=== PATIENT | female | born 1955 | race African-American/Black ===

== ENCOUNTER 2017-08-04 12:05 | Emergency (ER) | payer BC, OTHER ==
[2017-08-04 12:40] LABS: #Basophils 0.1 thou/uL (0.0-0.2); #Eosinphils 0.2 thou/uL (0.0-0.7); #Lymphocytes 1.8 thou/uL (1.20-3.40); #Monocytes 0.3 thou/uL (0.11-0.59); %Basophils 1.6 % (0.0-1.0); %Lymphocytes 34.5 % (21.0-51.0); %Monocytes 5.4 % (0.0-10.0); %Neutrophils 55.5 % (42.0-75.0); Hemoglobin 13.6 g/dL (12.0-16.0); Mean Corpuscular HGB CONC 32.4 g/dL (32.0-36.0); Mean Corpuscular Hemoglobin 28.8 pg (27.0-31.0); Mean Corpuscular Volume 89.1 fl (81.0-99.0); Mean Platelet Volume 8.2 fL (7.4-10.4); Platelet Count 248 thou/uL (130-400); RBC Distribution Width 12.1 % (11.5-14.5); Red Blood Cell (RBC) Count 4.73 mill/uL (4.20-5.40); White Blood Cell (WBC) Count 5.3 thou/uL (4.8-10.8)
[2017-08-04] MEDS ORDERED: ISOVUE-370 76%-LOCM 1 ML ONE (12:48)
[2017-08-04] MEDS ORDERED: Ondansetron PF 4 MG/2 ML Vial ONE (13:05)
[2017-08-04 13:07] LABS: ALT (SGPT) 14 U/L (8-55); AST (SGOT) 37 U/L (5-34); Albumin 3.5 g/dL (3.4-4.8); Alkaline Phosphatase 128 U/L (40-150); Anion Gap 11 mmol/L (10-20); BUN (Urea Nitrogen) 10 mg/dL (9.8-20.1); Calc. Creatinine Clearance 0 mL/min (70-130); Calcium 8.8 mg/dL (7.8-10.44); Carbon Dioxide 27 mmol/L (23-31); Chloride 105 mmol/L (98-107); Estimated GFR-MDRD 65; Globulin 3.3 g/dL (2.4-3.5); Glucose 95 mg/dL (80-115); Potassium 3.3 mmol/L (3.5-5.1); Protein, Total 6.8 g/dL (6.0-8.3); Sodium 140 mmol/L (136-145)
[2017-08-04 13:09] LABS: Troponin I Less than 0.010 ng/mL (< 0.028)
--- NOTE | 2017-08-04 13:30 | RAD ---
PORTABLE CHEST ONE VIEW: 08/04/2017 12:47 p.m. HISTORY: Chest pain. COMPARISON: 08/28/2011 FINDINGS: The heart size is normal. No confluent areas of consolidation, pneumothorax, or pleural effusions ar e seen. IMPRESSION: No radiographic evidence of acute cardiopulmonary process. POS: OFF
--- NOTE | 2017-08-04 13:46 | CT ---
CT ANGIOGRAM THORAX WITH IV CONTRAST AND 3D RECONSTRUCTIONS: Date: 08-04-17 History: Dyspnea. FINDINGS: No filling defects are seen in the pulmonary arteries to suggest a pulmonary embolus. Small vascular calcifications are seen in the coronary arteries. The thoracic aorta is normal in caliber and no obvi ous aortic dissection is appreciated. There is no evidence of lymphadenopathy. Lungs are clear. There is a hiatal hernia. Post-surgical changes are seen in the region of the GE junction. Evidence o f prior cholecystectomy. IMPRESSION: 1. No CT evidence of a pulmonary embolus. 2. Small hiatal hernia and post-surgical changes at the GE junction. POS: ANTONIO
[2017-08-04] MEDS ORDERED: Potassium Chloride 20 MEQ TAB ONE (14:51)
[2017-08-04] MEDS ORDERED: Ketorolac Tromethamine 30 MG/ML VIAL ONE (14:51)
--- NOTE | 2017-08-08 15:34 | EKG ---
Test Reason : Blood Pressure : / mmHG Vent. Rate : 054 BPM Atrial Rate : 054 BPM P-R Int : 146 ms QRS Dur : 074 ms QT Int : 446 ms P-R-T Axes : 023 -16 -34 degrees QTc Int : 422 ms Sinus bradycardia Moderate voltage criteria for LVH, may be normal variant Abnormal ECG Confirmed by DARLING THAO ([id number]), book or script editor IBIS SUAREZ ([id number]) on 08/08/2017 3:33:43 PM Referred By: Confirmed By:DARLING THAO
== END 2017-08-04 16:26 | disposition home or self-care (01) ==
LOC: ERS 12:05
DX: R07.2 Precordial pain (principal); E87.6 Hypokalemia; I10 Essential (primary) hypertension; F41.9 Anxiety disorder, unspecified; G89.29 Other chronic pain
CPT/HCPCS: 71045; 71275; 80053; 82553; 84484; 85025; 85379; 93005; 96361; 96374; 96375; J1885; J2405

== ENCOUNTER 2018-10-25 16:43 | Observation (INO) | payer BC ==
[~2018-10-25 16:43] MED LIST: Iopamidol 370 76% 100 ML VIAL ONE
[2018-10-25] MEDS ORDERED: Nitroglycerin 2% Ointment 1 INCH/1 GM Packet ONE (17:14)
[2018-10-25] MEDS ORDERED: Aspirin Chewable 81 MG TAB ONE (17:14)
[2018-10-25] MEDS ORDERED: Nitroglycerin 0.4 MG TAB (25 Tab Bottle) ONE (17:15)
[2018-10-25 17:27] LABS: #Basophils 0.1 thou/uL (0.0-0.2); #Eosinphils 0.1 thou/uL (0.0-0.7); #Lymphocytes 1.7 thou/uL (1.20-3.40); #Monocytes 0.5 thou/uL (0.11-0.59); #Neutrophils 7.8 thou/uL (1.40-6.50); %Eosinophils 0.6 % (0.0-10.0); %Lymphocytes 16.6 % (21.0-51.0); %Neutrophils 76.7 % (42.0-75.0); Hemoglobin 13.7 g/dL (12.0-16.0); Mean Corpuscular HGB CONC 31.7 g/dL (32.0-36.0); Mean Corpuscular Hemoglobin 28.6 pg (27.0-31.0); Mean Corpuscular Volume 90.4 fL (78.0-98.0); Platelet Count 266 thou/uL (130-400); RBC Distribution Width 13.7 % (11.5-14.5); Red Blood Cell (RBC) Count 4.79 mill/uL (4.20-5.40); White Blood Cell (WBC) Count 10.1 thou/uL (4.8-10.8)
[2018-10-25 17:38] LABS: ALT (SGPT) 17 U/L (8-55); AST (SGOT) 18 U/L (5-34); Albumin 3.7 g/dL (3.4-4.8); Alkaline Phosphatase 100 U/L (40-150); Anion Gap 16 mmol/L (10-20); BUN (Urea Nitrogen) 21 mg/dL (9.8-20.1); Bilirubin, Total 0.5 mg/dL (0.2-1.2); CK (CPK) 60 U/L (29-168); Calc. Creatinine Clearance 0 mL/min (70-130); Calcium 9.5 mg/dL (7.8-10.44); Carbon Dioxide 26 mmol/L (23-31); Chloride 104 mmol/L (98-107); Estimated GFR-MDRD 36; Globulin 3.8 g/dL (2.4-3.5); Glucose 132 mg/dL (80-115); Lipase 30 U/L (8-78); Potassium 3.8 mmol/L (3.5-5.1); Protein, Total 7.5 g/dL (6.0-8.3); Sodium 142 mmol/L (136-145)
--- NOTE | 2018-10-25 19:11 | CT ---
Contrast-enhanced CTA chest. HISTORY: Chest pain. [place] contrast-enhanced CTA of the chest performed. 2-D and 3-D reconstruction im ages performed on an independent 3-D workstation. Surgical wil seen in the gastroesophageal junction. There is some thickening of the distal esopha geal mucosa. This is unchanged since the previous exam from 08/04/2017. No significant evidence of mediastinal hilar or axillary lymphadenopathy is seen. Calcifications seen in the proximal portion of the left anterior descending coronary artery. No evidence of lung parenchymal masses or lesions seen. No evidence of filling defects seen in the pulmonary arteries to suggest pulmonary emboli. IMPRESSION: No evidence of pulmonary emboli.
[2018-10-25 20:30] LABS: Troponin I 0.013 ng/mL (< 0.028)
[2018-10-25 21:28] VITALS: BMI 50.3
[2018-10-25] MEDS ORDERED: Nitroglycerin 2% Ointment 1 INCH/1 GM Packet TOP SCH (21:30)
[2018-10-25 23:25] LABS: Troponin I Less than 0.010 ng/mL (< 0.028)
[2018-10-26] MEDS ORDERED: Nitroglycerin 0.4 MG TAB (25 Tab Bottle) PO PRN (01:46)
[2018-10-26] MEDS ORDERED: Ondansetron PF 4 MG/2 ML Vial IVP PRN (01:46)
[2018-10-26] MEDS ORDERED: Ondansetron ODT 4 MG TAB PO PRN (01:46)
[2018-10-26] MEDS ORDERED: Acetaminophen 500 MG TAB PO PRN (01:46)
[2018-10-26] MEDS ORDERED: hydrALAZINE 20 MG/ML VIAL SLOW IVP PRN (01:46)
--- NOTE | 2018-10-26 03:23 | HP ---
PRIMARY CARE PROVIDER: Mey Guido MD CHIEF COMPLAINT: Chest pain. HISTORY OF PRESENT ILLNESS: This is a 63-year-old female, who presented to [facility] Emergency Department complaining of chest pain, which lasted for approximately 3-1/2 hours starting approximately at 01:30 p.m. on 10/25/2018. The patient was sitting at work when she developed chest pressure and felt like "something was sitting on my chest." The patient rested for several hours without relief of her symptoms, but does state that she takes aspirin 81 mg daily and had taken a dose prior to this episode. The patient states she underwent cardiac catheterization approximately 10 years prior to this evaluation with negative findings. The patient admits to history of coronary artery disease with her mother sustaining a myocardial infarction in her 60s. The patient denied any recent trauma, injury, fever, chills, cough, or congestion. The patient states she has been on her routine chronic medications and has been compliant. The patient did experience some nausea and diaphoresis with the chest pain, but denied any jaw or left arm discomfort. In the emergency room, the patient underwent general evaluation with troponin I negative x1. The patient received transdermal nitroglycerin, intravenous normal saline, sublingual nitroglycerin, and aspirin 324 mg. The patient was referred to the Hospitalist Service for further observation. PAST MEDICAL HISTORY: 1. Hypertension. 2. Deep venous thrombosis, status post treatment. 3. Chronic back pain. 4. Depression. PAST SURGICAL HISTORY: 1. Status post cholecystectomy. 2. Status post hernia repair. 3. Status post gastric stapling. 4. Status post cardiac catheterization with negative findings. CURRENT MEDICATIONS: 1. Amlodipine 10 mg p.o. daily. 2. Enteric-coated aspirin 81 mg p.o. daily. 3. Chlorthalidone 25 mg p.o. daily. 4. Lexapro 10 mg p.o. daily. 5. Gabapentin 600 mg p.o. q.a.m. and 1200 mg p.o. at bedtime. 6. Mobic 15 mg p.o. q.a.m. ALLERGIES: NO KNOWN DRUG ALLERGIES. FAMILY HISTORY: Mother with myocardial infarction at age 60. SOCIAL HISTORY: with 2 children. Resides in [place], [place]. No current alcohol, tobacco, or illicit drug use. REVIEW OF SYSTEMS: CONSTITUTIONAL: Negative for weight loss or gain, ability to conduct usual activities. SKIN: Negative for rash, itching. EYES: Negative for double vision, pain. ENT/MOUTH: Negative for nose bleeding, neck stiffness, pain, tenderness. CARDIOVASCULAR: Negative for palpitations, dyspnea on exertion, orthopnea. RESPIRATORY: Negative for shortness of breath, wheezing, cough, hemoptysis, fever or night sweats. GASTROINTESTINAL: Negative for poor appetite, abdominal pain, heartburn, nausea, vomiting, constipation, or diarrhea. GENITOURINARY: Negative for urgency, frequency, dysuria, nocturia. MUSCULOSKELETAL: Negative for pain, swelling. NEUROLOGIC/PSYCHIATRIC: Negative for anxiety, depression. ALLERGY/IMMUNOLOGIC: Negative for skin rash, bleeding tendency. Otherwise negative except as stated per HPI. PHYSICAL EXAMINATION: VITAL SIGNS: On admission, blood pressure 113/55, pulse 55, respiratory rate 20, temperature 97.1 degrees Fahrenheit, O2 saturation 96% on room air. GENERAL APPEARANCE: This is a 63-year-old female, alert and oriented x3, pleasant, conversant, in no acute distress. HEENT: Pupils are equal, round, reactive to light and accommodation. Extraocular muscles are intact. No scleral icterus. No conjunctival injection. Nares are patent. OP is clear. Teeth in good repair. NECK: Supple. No cervical adenopathy. No thyromegaly. No carotid bruits. No JVD appreciated. Cervical spine with full active and passive range of motion. No meningeal signs noted. CHEST: Lungs are clear to auscultation bilaterally. CARDIOVASCULAR: S1 and S2 without noted murmur, rub, or gallop. ABDOMEN: Obese, soft, nontender, and nondistended. Bowel sounds are positive in all 4 quadrants. There is no hepatosplenomegaly. No abdominal bruits. No rebound or guarding appreciated. EXTREMITIES: Warm and dry with fair turgor. No clubbing, cyanosis, or asymmetric edema appreciated. Pulses palpable distally at the dorsalis pedis, posterior tibial, and popliteal arteries bilaterally. Capillary refill less than 2 seconds. NEUROLOGIC: Cranial nerves 2 through 12 are grossly intact. No focal or lateralizing signs appreciated. PERTINENT LAB AND X-RAY FINDINGS: BUN 21, creatinine 1.74, estimated GFR of 36, glucose 132, calcium 9.5. LFTs within normal limits. Troponin I negative x3. Lipase 30. CBC within normal limits. CT angiogram of the chest dated 10/25/2018, showed no evidence for pulmonary embolus. EKG dated 10/25/2018 by my interpretation shows sinus mechanism with heart rates in the 70s. Normal R-wave progression noted in the precordial leads. T-wave flattening in leads V3 and V4, and leads 3 and aVF. ASSESSMENT AND PLAN: 1. Chest pain. The patient will be observed on the telemetry unit. We will proceed with Cardiolite stress testing in the a.m. Check fasting lipid profile. Continue aspirin 325 mg daily. 2. Hypertension. Resume home antihypertensive regimen and monitor clinical response. P.r.n. hydralazine. 3. Chronic kidney disease stage 3. We will repeat creatinine in the a.m. Avoid nephrotoxic agents and limit contrast exposure. 4. Chronic back pain. Resume gabapentin 600 mg q.a.m. and 1200 mg p.o. at bedtime. 5. Prophylaxis. SCDs while in bed. Pepcid 20 mg p.o. b.i.d. 6. Code status is full. Surrogate medical decision maker is the patient's spouse. Job ID: [id number]
[2018-10-26 06:00] LABS: Cardiac Risk 4.7 (Less than 4.5)
[2018-10-26] MEDS ORDERED: Famotidine 20 MG TAB PO SCH (09:00)
[2018-10-26] MEDS ORDERED: Gabapentin 300 MG CAP PO SCH (09:00)
[2018-10-26] MEDS ORDERED: Amlodipine 10 MG TAB PO SCH (09:00)
[2018-10-26] MEDS ORDERED: Meloxicam 15 MG TAB PO SCH (09:00)
[2018-10-26] MEDS ORDERED: Chlorthalidone 25 MG TAB PO SCH (09:00)
[2018-10-26] MEDS ORDERED: Escitalopram Oxalate 10 mg Tablet PO SCH (09:00)
[2018-10-26] MEDS ORDERED: Aspirin 325 mg Enteric Coated Tablet PO SCH (09:00)
--- NOTE | 2018-10-26 11:07 | NM ---
EXAM: Cardiac SPECT HISTORY: Chest pain PROTOCOL: Stress only, single isotope TYPE OF STRESS: Pharmacologic stress with adenosine was monitored and interpreted by Dr. Fuller. RADIOPHARMACEUTICAL: 33 mCi technetium 99m-sestamibi injected intravenously FINDINGS: Homogeneous tracer distribution is seen in the myocardial segments on the post stress images. Gated SPECT LVEF: 65% Wall motion exam: Normal IMPRESSION: Normal post stress myocardial perfusion scan.
[2018-10-26] MEDS ORDERED: ADENOSINE 60 MG/20 ML VIAL ONE (14:17)
[2018-10-26 15:43] VITALS: BP 128/73; TEMP 98.3
[2018-10-26] MEDS ORDERED: Gabapentin 400 MG CAP PO SCH (21:00)
--- NOTE | 2018-10-27 17:27 | DIS ---
DATE OF ADMISSION: 10/25/2018 DATE OF DISCHARGE: 10/26/2018 CHIEF COMPLAINT: Chest pain. FINAL DIAGNOSES: 1. Chest pain, resolved, acute coronary syndrome ruled out, nuclear stress test negative for reversible ischemia. 2. Hypertension. 3. Chronic kidney disease, stage 3, stable. 4. Family history of coronary artery disease. HOSPITAL COURSE: The patient is a pleasant 63-year-old female with past medical history as outlined above, who presented to the hospital with complaints of chest pressure. She describes the chest pressure initially as "something sitting on her chest." It lasted for approximately 3-1/2 hours and was fairly constant. She did have some associated nausea and diaphoresis. She presented to the ER for further workup and treatment. Serial cardiac enzymes revealed no evidence of ACS. Her EKG was negative for any acute ST or T-wave changes. CTA of the chest showed no evidence of pulmonary embolism. The patient also underwent nuclear stress test, which showed no evidence of reversible ischemia. Her chest pain did completely resolve. She has ambulated the halls without issue and has had no further chest discomfort. CONDITION AT DISCHARGE: Stable. DISCHARGE INSTRUCTIONS: I have advised the patient to continue aggressive risk factor modification, along with diet, exercise, and weight loss. She does have an established cosmetic consultant, Dr. Meyer, who I have advised that she needs to continue to follow with given her risk factors. FOLLOWUP CARE: The patient will follow up with her primary care physician Dr. Guido along with Dr. Meyer at [facility]. DISCHARGE DISPOSITION: Home in good condition. Job ID: [id number]
== END 2018-10-26 16:55 | disposition home or self-care (01) ==
LOC: SCSER 16:43 → 2SW 18:40
PROVIDERS: ADMIT Internal Medicine; ATTEND Internal Medicine
DX: R07.89 Other chest pain (principal); I12.9 Hypertensive chronic kidney disease with stage 1 through stage 4 chronic kidney disease, or unspecified chronic kidney disease; N18.3 Chronic kidney disease, stage 3 (moderate); R61 Generalized hyperhidrosis; M54.9 Dorsalgia, unspecified; G89.29 Other chronic pain; F32.9 Major depressive disorder, single episode, unspecified; Z86.718 Personal history of other venous thrombosis and embolism; Z82.49 Family history of ischemic heart disease and other diseases of the circulatory system; Z79.82 Long term (current) use of aspirin; Z79.1 Long term (current) use of non-steroidal anti-inflammatories (NSAID); Z79.899 Other long term (current) drug therapy
CPT/HCPCS: 36415; 71275; 78452; 80053; 80061; 82550; 83690; 84484; 85025; 93005; 93017; 94760; 96360; A9500; G0378; J0153; Q9967

== ENCOUNTER 2019-12-08 12:42 | Outpatient (CLI) | payer BC ==
--- NOTE | 2019-12-08 13:08 | RAD ---
Left knee 4 views HISTORY: Knee injury. FINDINGS: Near complete joint space loss at the lateral compartment. Moderate tricompartmental osteop hytosis, also most pronounced at the lateral compartment. No acute fracture or dislocation are evident. Fluid distends the suprapatellar bursa on the lateral view. IMPRESSION : Osteoarthritis with near complete loss of joint space at the lateral compartment. Fluid within the joint could represent an effusion or possibly hemarthrosis from internal derangement . No acute osseous abnormalities are demonstrated.
== END 2019-12-08 12:43 | disposition home or self-care (01) ==
LOC: BICRAD 12:42
PROVIDERS: ATTEND Family Medicine
DX: M25.562 Pain in left knee (principal); M17.12 Unilateral primary osteoarthritis, left knee

== ENCOUNTER 2020-02-29 09:29 | Outpatient (CLI) | payer BC ==
--- NOTE | 2020-02-29 10:17 | RAD ---
3 views of the right knee: 02/29/2020 COMPARISON: None HISTORY: Right knee pain, fall in July, lateral knee pain FINDINGS: There is severe lateral compartment narrowing with associated osteophyte formation of the l ateral tibial plateau. There is a mild degree of medial compartment narrowing with osteophyte formation of the medial femoral condyle and medial tibial plateau. There is prominent patellofemoral joint space narrowing with posterior and superior patellar osteophyte formation. No displaced fracture or dislocation. No knee joint effusion. IMPRESSION: Prominent multicompartment degenerative joint disease, most significantly involving the l ateral and patellofemoral compartments.
--- NOTE | 2020-02-29 10:55 | MMO ---
Bilateral MAMMO Bilat Screen [facility]ICK[facility]. CLINICAL HISTORY: Patient is 64 years old and is seen for screening. The patient has no family history of breast cancer. The patient has no personal history of cancer. The patient has a history of right needle biopsy - benign. VIEWS: The views performed were: bilateral craniocaudal with tomosynthesis and bilateral mediolateral oblique with tomosynthesis. FILMS COMPARED: The present examination has been compared to a prior imaging study performed at [facility] on 09/04/2015. This study has been interpreted with the assistance of computer-aided detection. MAMMOGRAM FINDINGS: The breasts are almost entirely fat. There are no suspicious masses, suspicious calcifications, or new areas of architectural distortion. IMPRESSION: THERE IS NO MAMMOGRAPHIC EVIDENCE OF MALIGNANCY. A ROUTINE FOLLOW-UP MAMMOGRAM IN 1 YEAR IS RECOMMENDED. THE RESULTS OF THIS EXAM WERE SENT TO THE PATIENT. ACR BI-RADS Category 1 - Negative MAMMOGRAPHY NOTE: 1. A negative mammogram report should not delay a biopsy if a dominant of clinically suspicious mass is present. 2. Approximately 10% to 15% of breast cancers are not detected by mammography. 3. Adenosis and dense breasts may obscure an underlying neoplasm. Reported by: JAGUAR NOVOA MD Electonically Signed: [id number]
== END 2020-02-29 09:30 | disposition home or self-care (01) ==
LOC: BICMAMMO 09:29
PROVIDERS: ATTEND Family Medicine
DX: Z12.31 Encounter for screening mammogram for malignant neoplasm of breast (principal); M25.561 Pain in right knee; M17.11 Unilateral primary osteoarthritis, right knee; Z91.89 Other specified personal risk factors, not elsewhere classified
CPT/HCPCS: 77063; 77067

== ENCOUNTER 2020-03-12 09:19 | Outpatient (CLI) | payer BC ==
--- NOTE | 2020-03-12 09:42 | RAD ---
XR Chest Pa Lat STANDARD HISTORY: Dyspnea on exertion COMPARISON: 08/04/2017 FINDINGS: The heart size is normal. The aorta is tortuous. The lungs are well expanded without focal areas of consolidation, pneumothorax or pleural effusions. IMPRESSION: No radiographic evidence of acute cardiopulmonary process.
== END 2020-03-12 09:20 | disposition home or self-care (01) ==
LOC: SCSRAD 09:19
PROVIDERS: ATTEND Family Medicine
DX: R06.09 Other forms of dyspnea (principal); R60.0 Localized edema
CPT/HCPCS: 36415; 71046; 80053; 83880; 84443; 85025

== ENCOUNTER 2020-03-13 13:49 | Outpatient (CLI) | payer BC | END 2020-03-13 13:50 | disposition home or self-care (01) | LOC: ULT 13:49 | PROVIDERS: ATTEND Family Medicine | DX: R06.00 Dyspnea, unspecified (principal); R60.0 Localized edema; I34.0 Nonrheumatic mitral (valve) insufficiency | CPT/HCPCS: 93306 ==

== ENCOUNTER 2020-07-03 17:57 | Inpatient (IN) | payer BC ==
[~2020-07-03 17:57] MED LIST changes: +Heparin 10,000 UNITS/ 10 ML VIAL ONE; +Iopamidol 370 76% 50 ML VIAL FS ONE
[2020-07-03] MEDS ORDERED: Nitroglycerin 2% Ointment 1 INCH/1 GM Packet ONE (18:11)
[2020-07-03 18:22] LABS: #Basophils 0.1 thou/uL (0.0-0.2); #Eosinphils 0.2 thou/uL (0.0-0.7); #Lymphocytes 2.6 thou/uL (1.20-3.40); #Neutrophils 8.1 thou/uL (1.40-6.50); %Basophils 0.6 % (0.0-1.0); %Eosinophils 1.3 % (0.0-10.0); %Monocytes 8.3 % (0.0-10.0); %Neutrophils 67.8 % (42.0-75.0); Hemoglobin 13.8 g/dL (12.0-16.0); Mean Corpuscular HGB CONC 32.3 g/dL (32.0-36.0); Mean Corpuscular Hemoglobin 29.5 pg (27.0-31.0); Mean Corpuscular Volume 91.5 fL (78.0-98.0); Mean Platelet Volume 8.5 fL (7.4-10.4); Platelet Count 271 thou/uL (130-400); RBC Distribution Width 12.7 % (11.5-14.5); Red Blood Cell (RBC) Count 4.67 mill/uL (4.20-5.40)
[2020-07-03] MEDS ORDERED: Nitroglycerin 0.4 MG TAB 1 EACH ONE (18:36)
[2020-07-03 18:46] LABS: ALT (SGPT) 22 U/L (8-55); AST (SGOT) 39 U/L (5-34); Albumin 3.5 g/dL (3.4-4.8); Alkaline Phosphatase 94 U/L (40-110); Anion Gap 14 mmol/L (10-20); BUN (Urea Nitrogen) 28 mg/dL (9.8-20.1); Bilirubin, Total 0.4 mg/dL (0.2-1.2); CK (CPK) 270 U/L (29-168); Calc. Creatinine Clearance 0 mL/min (70-130); Calcium 8.6 mg/dL (7.8-10.44); Carbon Dioxide 26 mmol/L (23-31); Chloride 103 mmol/L (98-107); Globulin 3.5 g/dL (2.4-3.5); Glucose 111 mg/dL (80-115); Lipase 57 U/L (8-78); Sodium 139 mmol/L (136-145)
--- NOTE | 2020-07-03 19:00 | RAD ---
AP CHEST: 07/03/20 HISTORY: Chest pain. COMPARISON: 08/04/17. Lungs appear clear. No infiltrate. Vasculature upper normal. IMPRESSION: No acute process. POS: AGW
--- NOTE | 2020-07-03 19:11 | PDOC.HHP ---
Hospitalist HPI Chest pain History of Present Illness: PCP: Dr. Mey Guido The patient is a 65-year-old female with a past medical history significant for hypertension, DVT (2019), anxiety and spinal stenosis that presents to the emergency department for chest pain. She reports having intermittent chest pain for approximately 1 week. She reports that her chest pain increased with intensity approximately 20 minutes prior to arrival to the hospital. She reports that the chest pain is located generally throughout her chest, nonradiating, described as chest pressure, exacerbated relieved by nothing. She has history of hypertension and HLD, no history of diabetes. Denies heart palpitations and lightheadedness. No swelling to her lower extremities. Both mother and sister have had heart attacks. She has a history of provoked DVT. No history of COPD/asthma. Denies shortness of breath, wheezing, cough or hemoptysis. She denies abdominal pain, nausea, vomiting, diarrhea. She denies any fever or chills. ED Course: VITAL SIGNS ThuJul 03, 2020 17:58 CAREN Milner Dannette BP: 182/100, Pulse: 71, Resp: 20, Temp: 97.6 (Oral), Pain: 10, O2 sat: 97 on (Room Air), Time: 07/03/2020 17:58. VITAL SIGNS ThuJul 03, 2020 18:12 CAREN Styles Lacee BP: 153/99, Pulse: 59, Resp: 20, Pain: 10, O2 sat: 99 on (Room Air), Time: 07/03/2020 18:12. VITAL SIGNS ThuJul 03, 2020 18:38 CAREN Styles Lacee BP: 163/75, Pulse: 53, Resp: 21, Pain: 7, O2 sat: 99 on (Room Air), Time: 07/03/2020 18:38. Medications: aspirin oral 324 mg Oral Held 18:24 07/03/2020 nitroglycerin sublingual 0.4 mg Sublingual Given 18:38 07/03/2020 Nitro-Bid transdermal 1 inch Topical Given 18:25 07/03/2020 Heparin drip cardiovascular protocol Allergies/Adverse Reactions: Allergy/AdvReac Type Severity Reaction Status Date / Time No Known Drug Allergies Allergy Verified 10/25/18 21:42 Home Medications: Medication Instructions Recorded Confirmed Type Amlodipine [Norvasc] 10 mg PO DAILY 08/10/15 10/25/18 History Aspirin [Ecotrin Low Strength] 1 tablet PO DAILY 08/10/15 10/25/18 History Chlorthalidone 25 mg PO QAM 10/25/18 10/25/18 History Escitalopram Oxalate 10 mg PO DAILY 10/25/18 10/25/18 History Gabapentin 1,200 mg PO HS 10/25/18 10/25/18 History Gabapentin 600 mg PO QAM 10/25/18 10/25/18 History Meloxicam [Mobic] 15 mg PO QAM 10/25/18 10/25/18 History Past History: PMHx: HTN, HLD, DVT LLE (2019), anxiety, spinal stenosis PSHx: Appendectomy, cholecystectomy, , hysterectomy FHx: Mother and sister contributory for [place] Social: Lives with family, no history of tobacco use. No illicit drug use. No heavy alcohol intake. Works at [employer]. Fully independent. Hospitalist HPI ROS All other systems reviewed; all pertinent +/- noted in HPI/Subj Hospitalist Exam General Appearance: NAD, awake alert. negative: ill appearing Eye: PERRL, anicteric sclera ENT: normocephalic atraumatic, moist mucosa Neck: supple, no lymphadenopathy, no carotid bruit Heart: RRR, no murmur, no gallops, no rubs, normal peripheral pulses Respiratory: CTAB, no wheezes, no rales, no ronchi, normal chest expansion, no tachypnea Gastrointestinal: soft, non-tender, non-distended, normal bowel sounds, no guarding, no rigidity Extremities: no cyanosis, no edema Neurological: no focal deficits Psychiatric: normal affect, A&O x 3 Hospitalist Results Result Diagrams: 07/03/20 18:03 07/03/20 18:03 Lab results: Laboratory Last Values WBC 12.0 thou/uL (4.8-10.8) H 07/03/20 18:03 RBC 4.67 mill/uL (4.20-5.40) 07/03/20 18:03 Hgb 13.8 g/dL (12.0-16.0) 07/03/20 18:03 Hct 42.7 % (36.0-47.0) 07/03/20 18:03 MCV 91.5 fL (78.0-98.0) 07/03/20 18:03 MCH 29.5 pg (27.0-31.0) 07/03/20 18:03 MCHC 32.3 g/dL (32.0-36.0) 07/03/20 18:03 RDW 12.7 % (11.5-14.5) 07/03/20 18:03 Plt Count 271 thou/uL (130-400) 07/03/20 18:03 MPV 8.5 fL (7.4-10.4) 07/03/20 18:03 Neutrophils % 67.8 % (42.0-75.0) 07/03/20 18:03 Lymphocytes % 22.0 % (21.0-51.0) 07/03/20 18:03 Monocytes % 8.3 % (0.0-10.0) 07/03/20 18:03 Eosinophils % 1.3 % (0.0-10.0) 07/03/20 18:03 Basophils % 0.6 % (0.0-1.0) 07/03/20 18:03 Neutrophils # 8.1 thou/uL (1.40-6.50) H 07/03/20 18:03 Lymphocytes # 2.6 thou/uL (1.20-3.40) 07/03/20 18:03 Monocytes # 1.0 thou/uL (0.11-0.59) H 07/03/20 18:03 Eosinophils # 0.2 thou/uL (0.0-0.7) 07/03/20 18:03 Basophils # 0.1 thou/uL (0.0-0.2) 07/03/20 18:03 Sodium 139 mmol/L (136-145) 07/03/20 18:03 Potassium 4.0 mmol/L (3.5-5.1) 07/03/20 18:03 Chloride 103 mmol/L (98-107) 07/03/20 18:03 Carbon Dioxide 26 mmol/L (23-31) 07/03/20 18:03 Anion Gap 14 mmol/L (10-20) 07/03/20 18:03 BUN 28 mg/dL (9.8-20.1) H 07/03/20 18:03 Creatinine 1.24 mg/dL (0.6-1.1) H 07/03/20 18:03 Estimated GFR (MDRD) 53 07/03/20 18:03 Glucose 111 mg/dL (80-115) 07/03/20 18:03 Calcium 8.6 mg/dL (7.8-10.44) 07/03/20 18:03 Total Bilirubin 0.4 mg/dL (0.2-1.2) 07/03/20 18:03 AST 39 U/L (5-34) H 07/03/20 18:03 ALT 22 U/L (8-55) 07/03/20 18:03 Alkaline Phosphatase 94 U/L (40-110) 07/03/20 18:03 Creatine Kinase 270 U/L (29-168) H 07/03/20 18:03 Troponin I 2.900 ng/mL (< 0.028) H* 07/03/20 18:03 B-Natriuretic Peptide 366.5 pg/mL (0-100) H 07/03/20 18:03 Serum Total Protein 7.0 g/dL (5.8-8.1) 07/03/20 18:03 Albumin 3.5 g/dL (3.4-4.8) 07/03/20 18:03 Globulin 3.5 g/dL (2.4-3.5) 07/03/20 18:03 Albumin/Globulin Ratio 1.0 g/dL (1.2-2.2) L 07/03/20 18:03 Lipase 57 U/L (8-78) 07/03/20 18:03 EKG Status: image reviewed by me, report reviewed by me Additional Comments: 12 lead EKG interpreted by Emergency Department Physician at time of study, Rate 66. Normal sinus rhythm normal [place] interval normal QRS complex. Normal axis. Any ST segment deviation in V1 and V2 does not meet the 2 mm cut off in leads V1 and V2. Any ST segment or J-point elevation movement in V3 or V4 is less than 1 mm thus does not meet STEMI criteria. Repeat EKG after initial troponin: Normal sinus rhythm, biphasic T wave in lead V2. Chest x-ray Status: report reviewed by me Additional Comments: No acute cardiopulmonary process. Hospitalist H&P A/P (1) STEMI (ST elevation myocardial infarction) Status: Acute (2) HTN (hypertension) Code(s): I10 - ESSENTIAL (PRIMARY) HYPERTENSION Status: Chronic (3) HLD (hyperlipidemia) Code(s): E78.5 - HYPERLIPIDEMIA, UNSPECIFIED Status: Chronic (4) Obesity Code(s): E66.9 - OBESITY, UNSPECIFIED Status: Chronic (5) History of DVT (deep vein thrombosis) Code(s): Z86.718 - PERSONAL HISTORY OF OTHER VENOUS THROMBOSIS AND EMBOLISM Status: Chronic (6) Anxiety Code(s): F41.9 - ANXIETY DISORDER, UNSPECIFIED Status: Chronic Plan: A patient with strong family cardiac history, HTN, HLD and obesity presents for chest pain. Presented hypertensive. Initial troponin 2.9, CK-MB 270. EKG biphasic T wave in lead V2. ER MD activated STEMI alert. #STEMI Initial EKG did not meet STEMI criteria, Repeat EKG Wellens sign V2, initial troponin 2.9 STEMI alert activated by ERMD Dr. Ryan will take patient to [facility]. Patient received aspirin, Nitropaste was placed on heparin drip. Patient will be admitted to our service after cardiac [facility]. Medications for rn ante partum recommendations. #Hypertension Presented hypertensive. Takes Coreg, benazepril and chlorthalidone at home. We will restart home medications when appropriate. #HLD Check FLP Statin therapy per cardiology recommendations. #Obesity Dietary consultation. #History of DVT Appears provoked in 2019left lower extremity #Anxiety Denies SI/HI Takes Lexapro at home. We will restart home medication reconciled by nursing. SCDs for DVT prophylaxis. Patient currently on heparin drip per cardiology. No GI prophylaxis. CODE STATUS is full code. Discussed the case with attending physician, Dr. Fred Jackman, who agrees with plan of care.
[2020-07-03 19:17] LABS: CKMB 21.9 ng/mL (0-6.6)
[2020-07-03] MEDS ORDERED: Heparin 10,000 UNITS/ 10 ML VIAL ONE (19:39)
[2020-07-03 19:41] LABS: INR-International Normal Ratio 1.1; Prothrombin Time 14.1 sec (12.0-14.7)
[2020-07-03] MEDS ORDERED: Acetaminophen 325 MG TAB PO PRN (19:58)
[2020-07-03] MEDS ORDERED: Ondansetron PF 4 MG/2 ML Vial IVP PRN (19:58)
[2020-07-03] MEDS ORDERED: Ondansetron ODT 4 MG TAB PO PRN (19:58)
[2020-07-03] MEDS ORDERED: TICAGRELOR 90 MG TABLET ONE (20:32)
[2020-07-03] MEDS ORDERED: Mag-Al 1200 mg/1200 mg/30 ML UDCUP PO PRN (20:42)
[2020-07-03] MEDS ORDERED: Milk Of Magnesia 30 ML UDCUP PO PRN (20:42)
[2020-07-03] MEDS ORDERED: Acetaminophen/Codeine 30-300mg Tablet PO PRN (20:42)
[2020-07-03] MEDS ORDERED: Zolpidem Tartrate 5 MG TAB PO PRN (20:42)
[2020-07-03] MEDS ORDERED: Morphine 2 MG/ML VIAL SLOW IVP PRN (20:42)
[2020-07-03] MEDS ORDERED: Nitroglycerin 0.4 MG TAB (25 Tab Bottle) SL PRN (20:42)
[2020-07-03] MEDS ORDERED: traMADol HCl 50 MG TAB PO PRN (20:42)
[2020-07-03] MEDS ORDERED: Atorvastatin Calcium 40 MG TAB PO SCH ×2 (21:00→21:30)
[2020-07-03] MEDS ORDERED: Sodium Chloride 0.9% 500 ML IV SCH (21:00)
[2020-07-03] MEDS: TICAGRELOR 90 MG TABLET PO SCH (21:52)
--- NOTE | 2020-07-03 22:17 | CON ---
DATE OF CONSULTATION: 07/03/2020 REASON FOR CONSULTATION: Non-STEMI. HISTORY OF PRESENT ILLNESS: Ms. Hodges is a pleasant 65-year-old female, who comes to the hospital for chest pain. She has been having pain for the past two days. Pain got so much worse today that she decided to come in for further evaluation. In the ER, initial EKG shows subtle ST elevations in the anterior leads. Her troponin came back at 2.6, so Cardiology was consulted. When I saw the EKGs, I asked about her symptoms, she was having ongoing chest pain, so the STEMI alert was activated at that point. I came to see Ms. Hodges, she was continued to have chest pain, so we took her emergently to the catheterization lab, where she was found to have a 99% LAD stenosis proximal. This was wired and a drug-eluting stent was successfully placed. She did well after that. She is pain free. Angio-Seal was placed on the right femoral arteriotomy site. PAST MEDICAL HISTORY: 1. Hypertension. 2. DVT in 2019. 3. Spinal stenosis. 4. Anxiety. SURGICAL HISTORY: 1. Appendectomy. 2. Cholecystectomy. 3. . 4. Hysterectomy. FAMILY HISTORY: Mother and sister both have had MIs in the past. SOCIAL HISTORY: No tobacco. No drug use. No alcohol use. 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 REVIEW OF SYSTEMS: A 12-point review of systems was done and was found to be negative other than stated in the history of present illness. MEDICATIONS: Outpatient medications: 1. Amlodipine 10 mg a day. 2. Aspirin 81 a day. 3. Chlorthalidone 25 mg a day. 4. Escitalopram 10 mg a day. 5. Gabapentin 1200 mg at bedtime and 600 mg in the morning. 6. Meloxicam 15 mg every morning. ALLERGIES: NO KNOWN DRUG ALLERGIES. PHYSICAL EXAMINATION: VITAL SIGNS: Temperature 97.6, pulse 70, respiratory rate 16, saturating 98% on room air, blood pressure 145/79. GENERAL: Awake, alert, and oriented x3, in no distress. HEENT: Normocephalic, atraumatic. NECK: Supple. LUNGS: Clear. CARDIOVASCULAR: S1, S2. No S3 or S4. No murmurs. No rubs. ABDOMEN: Soft. Positive bowel sounds. EXTREMITIES: No edema. SKIN: Warm and dry. LABORATORY DATA: Laboratory work was reviewed. White count of 12, hemoglobin of 13, hematocrit 42, and platelet count of 271. Coags were reviewed. Chemistries were reviewed. Troponin initially at 2.9 with a CK-MB of 21.9. BNP was 366. BUN of 28, creatinine of 1.24. GFR was 53. ASSESSMENT: 1. Acute myocardial infarction. 2. Xbw-DX-[id number] myocardial infarction. 3. Status post drug-eluting stent to the LAD. 4. Hypertension. 5. Hyperlipidemia. PLAN: 1. Dual antiplatelet therapy for minimum of one year with aspirin and Brilinta. 2. High-dose statins. 3. BOB inhibitor and beta kimmie once blood pressure allows. 4. IV fluids to minimize risk of contrast nephropathy. 5. Echocardiogram to be done in the morning. 6. Angio-Seal vascular closure device to the right femoral arteriotomy site. Thank you for letting us to participate in the care of your patient. We will follow. Job ID: [id number]
[2020-07-03 22:31] VITALS: BMI 52.5
[2020-07-03] MEDS: Nitroglycerin 2% Ointment 1 INCH/1 GM Packet TOP SCH (23:10)
[2020-07-03 23:27] LABS: CKMB 26.7 ng/mL (0-6.6); Troponin I 3.237 ng/mL (< 0.028)
[2020-07-04 04:33] LABS: #Eosinphils 0.1 thou/uL (0.0-0.7); #Lymphocytes 1.5 thou/uL (1.20-3.40); #Monocytes 0.9 thou/uL (0.11-0.59); #Neutrophils 7.1 thou/uL (1.40-6.50); %Basophils 0.4 % (0.0-1.0); %Lymphocytes 15.5 % (21.0-51.0); %Monocytes 9.6 % (0.0-10.0); %Neutrophils 73.5 % (42.0-75.0); Hemoglobin 12.3 g/dL (12.0-16.0); Mean Corpuscular HGB CONC 32.5 g/dL (32.0-36.0); Mean Corpuscular Hemoglobin 29.9 pg (27.0-31.0); Mean Corpuscular Volume 91.9 fL (78.0-98.0); Mean Platelet Volume 8.5 fL (7.4-10.4); Platelet Count 236 thou/uL (130-400); RBC Distribution Width 12.9 % (11.5-14.5); Red Blood Cell (RBC) Count 4.13 mill/uL (4.20-5.40); White Blood Cell (WBC) Count 9.7 thou/uL (4.8-10.8)
[2020-07-04 04:53] LABS: Anion Gap 14 mmol/L (10-20); BUN (Urea Nitrogen) 23 mg/dL (9.8-20.1); Calc. Creatinine Clearance 102 mL/min (70-130); Calcium 8.1 mg/dL (7.8-10.44); Carbon Dioxide 26 mmol/L (23-31); Cardiac Risk 3.7 (Less than 4.5); Chloride 104 mmol/L (98-107); Cholesterol 153 mg/dl (< 200 Desired); Glucose 113 mg/dL (80-115); HDL Cholesterol 41 mg/dL (>60 Neg Risk); LDL Cholesterol, Calculated 85 mg/dL; Potassium 3.6 mmol/L (3.5-5.1); Sodium 140 mmol/L (136-145); Triglycerides 135 mg/dL (Less than 150)
[2020-07-04 05:03] LABS: CKMB 98.3 ng/mL (0-6.6)
[2020-07-04] MEDS: Nitroglycerin 2% Ointment 1 INCH/1 GM Packet TOP SCH (05:16)
[2020-07-04 05:23] LABS: SARS-CoV-2 PCR by NAA Not Detected (NotDetected)
[2020-07-04] MEDS: TICAGRELOR 90 MG TABLET PO SCH ×2 (09:00→20:17)
[2020-07-04] MEDS ORDERED: FLU VACC QS2020-21(6MOS UP)/PF 60 MCG/0.5 ML SYRINGE IM ONE (09:00)
[2020-07-04] MEDS: Aspirin Chewable 81 MG TAB PO SCH (09:00)
--- NOTE | 2020-07-04 16:19 | PDOC.HOSPP ---
- Subjective Encounter Date: 07/04/20 Encounter Time: 12:00 Subjective: is ambulating in hallway, has exertional sob, no chest pain at bedside - Objective Vital Signs & Weight: Vital Signs (12 hours) Temp Pulse Pulse Pulse Resp BP BP 07/04/20 11:59 97.9 F 53 L 15 07/04/20 09:43 57 L 62 112/57 L 150/77 H 07/04/20 08:50 97.4 F L 56 L 15 BP Pulse Ox Pulse Ox Pulse Ox 07/04/20 11:59 130/76 100 07/04/20 09:43 98 99 07/04/20 08:50 131/79 99 Weight Weight 269 lb 2.951 oz I&O: 07/03/20 07/04/20 07/05/20 06:59 06:59 06:59 Intake Total 500 240 Output Total 550 Balance -50 240 Result Diagrams: 07/04/20 04:00 07/04/20 04:00 Hospitalist ROS - Medication Medications: Active Medications Generic Name Dose Route Start Last Admin Trade Name Wilberq PRN Reason Stop Dose Admin Aspirin 81 mg 07/04/20 09:00 07/04/20 09:00 Aspirin Chewable 81 Mg Tab PO 81 mg DAILY JEYSON Administration Morphine Sulfate 2 mg 07/03/20 20:42 07/03/20 21:52 Morphine 2 Mg/Ml Vial SLOW IVP 2 mg Q4H PRN Administration Moderate Chest Pain (4-6) Ticagrelor 90 mg 07/03/20 21:00 07/04/20 09:00 Ticagrelor 90 Mg Tablet PO 90 mg BID JYESON Administration Hospitalist Exam Vitals: Vital Signs (12 hours) Temp Pulse Pulse Pulse Resp BP BP 07/04/20 11:59 97.9 F 53 L 15 07/04/20 09:43 57 L 62 112/57 L 150/77 H 07/04/20 08:50 97.4 F L 56 L 15 BP Pulse Ox Pulse Ox Pulse Ox 07/04/20 11:59 130/76 100 07/04/20 09:43 98 99 07/04/20 08:50 131/79 99 Weight Weight 269 lb 2.951 oz General Appearance: awake alert Eye: PERRL, anicteric sclera ENT: no oropharyngeal lesions, moist mucosa Neck: supple, no JVD Heart: RRR, no murmur Respiratory: no wheezes, no rales Gastrointestinal: soft, non-tender, non-distended, normal bowel sounds Extremities: no cyanosis, no edema Neurological: cranial nerve grossly intact, no focal deficits Psychiatric: normal affect, A&O x 3 Hosp A/P (1) NSTEMI (non-ST elevated myocardial infarction) Code(s): I21.4 - NON-ST ELEVATION (NSTEMI) MYOCARDIAL INFARCTION Status: Acute (2) CAD (coronary artery disease) Code(s): I25.10 - ATHSCL HEART DISEASE OF [place] CORONARY ARTERY W/O ANG PCTRS Status: Acute Qualifiers: Coronary Disease-Associated Artery/Lesion type: [place] artery [place] vs. transplanted heart: [place] heart Associated angina: with stable angina Qualified Code(s): I25.118 - Atherosclerotic heart disease of [place] coronary artery with other forms of angina pectoris (3) Anxiety Code(s): F41.9 - ANXIETY DISORDER, UNSPECIFIED Status: Chronic (4) HLD (hyperlipidemia) Code(s): E78.5 - HYPERLIPIDEMIA, UNSPECIFIED Status: Chronic Qualifiers: Hyperlipidemia type: mixed hyperlipidemia Qualified Code(s): E78.2 - Mixed hyperlipidemia (5) HTN (hypertension) Code(s): I10 - ESSENTIAL (PRIMARY) HYPERTENSION Status: Chronic Qualifiers: Hypertension type: essential hypertension Qualified Code(s): I10 - Essential (primary) hypertension (6) History of DVT (deep vein thrombosis) Code(s): Z86.718 - PERSONAL HISTORY OF OTHER VENOUS THROMBOSIS AND EMBOLISM Status: Chronic (7) Obesity Code(s): E66.9 - OBESITY, UNSPECIFIED Status: Chronic Qualifiers: Obesity classification: adult class 3 (BMI >= 40) Body mass index: BMI 50.0-59.9 - Plan s/p stent to lad, ac VT with nstemi is on asp, brilinta, lipitor and coreg hemostable has life threatening obesity with bmi of 52 dc plan per cardilogy advice d/w patient and at bedside
[2020-07-04 16:57] LABS: Bilirubin Negative (Negative); Blood, Urine Negative (Negative); Clarity Clear (Clear); Glucose, Urine (Dipstick) Normal (Negative); Ketone, Urine Negative (Negative); Leukocyte 75 Leu/uL (Negative); Nitrite Negative (Negative); Protein, Urine (Dipstick) Negative (Neg-Trace); RBC/HPF 0-3 HPF (0-3); Specific Gravity, Urine 1.021 (1.002-1.036); Urobilinogen Normal mg/dL (Less than 2); WBC/HPF 0-3 HPF (0-3)
--- NOTE | 2020-07-04 16:58 | PDOC.CPN ---
- Subjective Date: 07/04/20 Time: 16:56 Interval history: No more chest pain. Telemetry stable. - Review of Systems General: denies: fever/chills, weight/appetite/sleep changes, night sweats, fatigue Respiratory: denies: cough, congestion, shortness of breath, exercise intolerance Cardiovascular: denies: chest pain, palpitation, edema, paroxysmal nocturnal dyspnea, orthopnea Gastrointestinal: denies: nausea, vomiting, diarrhea, constipation, abd pain, GI bleeding Musculoskeletal: denies: pain, tenderness, stiffness, swelling, arthritis/arthralgias Neurological: denies: numbness, syncope, seizure, weakness - Objective Allergies/Adverse Reactions: Allergies Allergy/AdvReac Type Severity Reaction Status Date / Time No Known Drug Allergies Allergy Verified 10/25/18 21:42 Visit Medications: Current Medications Acetaminophen/Codeine Phosphate (Acetaminophen/Codeine 30-300mg Tablet) 1 tab PO Q4H PRN PRN Reason: Mild Pain (1-3) Al Hydroxide/Mg Hydroxide (Mag-Al 1200 Mg/1200 Mg/30 Ml Udcup) 30 ml PO Q3H PRN PRN Reason: Indigestion Aspirin (Aspirin Chewable 81 Mg Tab) 81 mg PO DAILY [facility] Last Admin: 07/04/20 09:00 Dose: 81 mg Documented by: Atorvastatin Calcium (Atorvastatin Calcium 40 Mg Tab) 80 mg PO HS [facility] Magnesium Hydroxide (Milk Of Magnesia 30 Ml Udcup) 30 ml PO Q12H PRN PRN Reason: Constipation Morphine Sulfate (Morphine 2 Mg/Ml Vial) 2 mg SLOW IVP Q4H PRN PRN Reason: Moderate Chest Pain (4-6) Last Admin: 07/03/20 21:52 Dose: 2 mg Documented by: Nitroglycerin (Nitroglycerin 0.4 Mg Tab (25 Tab Bottle)) 0.4 mg SL Q5MIN PRN PRN Reason: Chest Pain Ondansetron HCl (Ondansetron Pf 4 Mg/2 Ml Vial) 4 mg IVP Q6H PRN PRN Reason: Nausea/Vomiting Ondansetron HCl (Ondansetron Odt 4 Mg Tab) 4 mg PO Q6H PRN PRN Reason: Nausea/Vomiting Sodium Chloride (Flush - Normal Saline 10 Ml Syringe) 10 ml IVF PRN PRN PRN Reason: Saline Flush Ticagrelor (Ticagrelor 90 Mg Tablet) 90 mg PO BID JEYSON Last Admin: 07/04/20 09:00 Dose: 90 mg Documented by: Tramadol HCl (Tramadol Hcl 50 Mg Tab) 50 mg PO Q6H PRN PRN Reason: Moderate Pain (4-6) Zolpidem Tartrate (Zolpidem Tartrate 5 Mg Tab) 5 mg PO HSPRN PRN PRN Reason: Insomnia Vital Signs & Weight: Vital Signs Temp Pulse Pulse Pulse Resp BP BP 07/04/20 11:59 97.9 F 53 L 15 07/04/20 09:43 57 L 62 112/57 L 150/77 H 07/04/20 08:50 97.4 F L 56 L 15 BP Pulse Ox Pulse Ox Pulse Ox 07/04/20 11:59 130/76 100 07/04/20 09:43 98 99 07/04/20 08:50 131/79 99 Weight 269 lb 2.951 oz - Physical Exam General: alert & oriented x3 HEENT: mucus membranes moist Neck: supple neck Cardiac: regular rate and rhythm Lungs: normal breath sounds Neuro: no lateralizing findings Abdomen: active bowel sounds Extremities: no edema Skin: clear Musculoskeletal: no pain - Labs Result Diagrams: 07/04/20 04:00 07/04/20 04:00 Troponin/CKMB CK-MB (CK-2) 98.3 ng/mL (0-6.6) H* 07/04/20 04:00 Troponin I 26.330 ng/mL (< 0.028) H* 07/04/20 00:46 - Telemetry Sinus rhythms and dysrhythmias: sinus rhythm - Assessment/Plan Assessment/Plan: 1. NSTEMI 2. CAD 3. S/P DERIC to LAD 4. Residual RCA disease, small vessel 5. HTN 6. HLP PLAN: - Continue Brilinta and ASA - Will start low dose BB and ACEI - Continue Statin, goal LDL less than 70 - Echo pending.
[2020-07-04 17:00] LABS: Bacteria/HPF 1+ HPF (None Seen)
[2020-07-04] MEDS ORDERED: Atorvastatin Calcium 40 MG TAB PO SCH (21:00)
--- NOTE | 2020-07-05 07:21 | EKG ---
Test Reason : Blood Pressure : / mmHG Vent. Rate : 048 BPM Atrial Rate : 048 BPM P-R Int : 146 ms QRS Dur : 076 ms QT Int : 484 ms P-R-T Axes : 026 -10 -01 degrees QTc Int : 432 ms Marked sinus bradycardia T wave abnormality, consider anterior ischemia Abnormal ECG When compared with ECG of 03-JUL-2020 18:05, (Unconfirmed) T wave inversion now evident in Inferior leads T wave inversion now evident in Anterior leads Confirmed by DR. Mart JADE ([id number]) on 07/05/2020 7:20:54 AM Referred By: MARCO Confirmed By:DR. Mart JADE
[2020-07-05] MEDS: Aspirin Chewable 81 MG TAB PO SCH (08:21)
[2020-07-05] MEDS: TICAGRELOR 90 MG TABLET PO SCH (08:21)
[2020-07-05] MEDS ORDERED: Lisinopril 2.5 MG TAB PO SCH (09:00)
[2020-07-05 09:13] VITALS: TEMP 97.9
[2020-07-05 10:05] VITALS: BP 134/70
--- NOTE | 2020-07-05 16:54 | DIS ---
DATE OF ADMISSION: 07/03/2020 DATE OF DISCHARGE: 07/05/2020 DISCHARGE DISPOSITION: To home. PRIMARY DISCHARGE DIAGNOSIS: Non-ST elevation acute myocardial infarction, status post stent to left anterior descending artery. SECONDARY DISCHARGE DIAGNOSES: Coronary artery disease, hypertension, dyslipidemia, anxiety disorder, morbid obesity with BMI of 52. PROCEDURES DONE DURING HOSPITALIZATION: Chest x-ray done on the day of admission showed no acute process. Cardiac catheterization done by Dr. Ryan on 07/03/2020 showed severe proximal LAD stenosis, status post PCI to the proximal LAD, Synergy DERIC stent placed, severe distal RCA, and severe distal right posterior descending artery, which was a small vessel, elevated left ventricular end-diastolic pressure was seen. Echo with 2D Doppler done showed ejection fraction of 40% to 45%. Mild concentric LVH. Severe apical/anteroseptal hypokinesis. RV systolic pressures were estimated at 32 mmHg. H and H 12 and 38, platelet count 236, white count of 9, MCV 91. Her troponin peaking up to 26.3. CK-MB peaking up to 98.3. Total cholesterol 153, triglycerides 135, LDL 85, HDL 41, TSH 1.63. BUN and creatinine 23 and 1.0. COVID-19 PCR was not detected on 07/03/2020. DISCHARGE MEDICATIONS: 1. Brilinta 90 mg twice daily. 2. Aspirin 81 mg p.o. daily. 3. Lipitor 80 mg p.o. at bedtime. 4. Toprol-XL 12.5 mg p.o. daily. 5. Lisinopril 2.5 mg p.o. daily. 6. Gabapentin 800 mg p.o. twice daily. 7. Mobic 15 mg p.o. q.a.m. 8. Lexapro 20 mg p.o. daily. 9. Tylenol 3 q.6 hourly p.r.n. ALLERGIES: NO KNOWN DRUG ALLERGIES. DISCHARGE PLAN: The patient to follow up with Dr. Mey Guido, her primary care physician, on 07/10/2020 at 9:15 a.m. She needs to follow up with Dr. Ryan in 2 weeks. BRIEF COURSE DURING HOSPITALIZATION: The patient initially came in with complaints of chest pain with elevated troponin and no sign of ST elevation NC on the EKG. Her serial troponin was elevated. She was taken for cardiac catheterization and has had stent placed to proximal LAD. Post stent placement, the patient has not had any chest pains. She is ambulating in the hallway and tolerating oral solid diet. Her medications were optimized. The patient has ejection fraction of around 40% to 45% with severe apical and anteroseptal hypokinesis due to current myocardial infarction/non-ST elevation myocardial infarction, and this will likely improve with revascularization. She is hemodynamically stable and is cleared for discharge by Dr. Ryan. The patient was prescribed Brilinta and aspirin along with high dose, high-intensity statins. She has morbid obesity with BMI of around 52 and needs to make lifestyle changes along with dietary changes as well and was counseled regarding the same. Please note, I have seen and examined the patient on the day of discharge. Job ID: [id number]
== END 2020-07-05 12:00 | disposition home or self-care (01) | DRG 247 ==
LOC: ERS 17:57 → 2NO 18:54
PROVIDERS: ADMIT Internal Medicine; ATTEND Internal Medicine
PROC: 027034Z Dilation of Coronary Artery, One Artery with Drug-eluting Intraluminal Device, Percutaneous Approach (ICD-10-PCS; principal; 2020-07-03)
PROC: B2111ZZ Fluoroscopy of Multiple Coronary Arteries using Low Osmolar Contrast (ICD-10-PCS; 2020-07-03)
PROC: B2151ZZ Fluoroscopy of Left Heart using Low Osmolar Contrast (ICD-10-PCS; 2020-07-03)
PROC: 4A023N7 Measurement of Cardiac Sampling and Pressure, Left Heart, Percutaneous Approach (ICD-10-PCS; 2020-07-03)
DX: I21.4 Non-ST elevation (NSTEMI) myocardial infarction (principal); Z68.43 Body mass index [BMI] 50.0-59.9, adult; G89.29 Other chronic pain; M54.9 Dorsalgia, unspecified; F41.9 Anxiety disorder, unspecified; E78.5 Hyperlipidemia, unspecified; I10 Essential (primary) hypertension; I25.118 Atherosclerotic heart disease of native coronary artery with other forms of angina pectoris; E66.01 Morbid (severe) obesity due to excess calories; Z20.822 Contact with and (suspected) exposure to COVID-19; Z86.718 Personal history of other venous thrombosis and embolism; Z90.710 Acquired absence of both cervix and uterus; Z90.49 Acquired absence of other specified parts of digestive tract; Z79.82 Long term (current) use of aspirin; Z79.899 Other long term (current) drug therapy; Z82.49 Family history of ischemic heart disease and other diseases of the circulatory system
CPT/HCPCS: 36415; 71045; 80048; 80053; 80061; 81001; 82550; 82553; 83690; 83735; 83880; 84443; 84484; 85025; 85347; 85610; 85730; 87635; 92928; 93005; 93010; 93306; 93458; 93798; 94760; 96365; 96376; 97139; C1760; C1874; C9600; J1644; J2270; Q9967; U0003; U0005

== ENCOUNTER 2020-09-17 09:42 | Observation (INO) | payer BC ==
[2020-09-17 10:33] LABS: #Eosinphils 0.2 thou/uL (0.0-0.7); #Lymphocytes 1.3 thou/uL (1.20-3.40); #Monocytes 0.5 thou/uL (0.11-0.59); #Neutrophils 3.5 thou/uL (1.40-6.50); %Basophils 0.4 % (0.0-1.0); %Eosinophils 3.1 % (0.0-10.0); %Lymphocytes 22.7 % (21.0-51.0); %Monocytes 9.8 % (0.0-10.0); %Neutrophils 64.1 % (42.0-75.0); Hemoglobin 12.7 g/dL (12.0-16.0); Mean Corpuscular Hemoglobin 28.4 pg (27.0-31.0); Mean Corpuscular Volume 91.9 fL (78.0-98.0); Mean Platelet Volume 8.9 fL (7.4-10.4); Platelet Count 209 thou/uL (130-400); RBC Distribution Width 12.9 % (11.5-14.5); Red Blood Cell (RBC) Count 4.46 mill/uL (4.20-5.40); White Blood Cell (WBC) Count 5.5 thou/uL (4.8-10.8)
[2020-09-17 10:53] LABS: ALT (SGPT) 16 U/L (8-55); AST (SGOT) 24 U/L (5-34); Albumin 3.2 g/dL (3.4-4.8); Alkaline Phosphatase 99 U/L (40-110); Anion Gap 15 mmol/L (10-20); BUN (Urea Nitrogen) 9 mg/dL (9.8-20.1); Bilirubin, Total 1.1 mg/dL (0.2-1.2); Calc. Creatinine Clearance 0 mL/min (70-130); Calcium 8.3 mg/dL (7.8-10.44); Carbon Dioxide 24 mmol/L (23-31); Chloride 106 mmol/L (98-107); Globulin 3.3 g/dL (2.4-3.5); Glucose 101 mg/dL (80-115); Potassium 3.3 mmol/L (3.5-5.1); Protein, Total 6.5 g/dL (5.8-8.1); Sodium 142 mmol/L (136-145)
[2020-09-17] MEDS ORDERED: Loratadine 10 MG TAB PO PRN (11:33)
[2020-09-17] MEDS ORDERED: hydrALAZINE 20 MG/ML VIAL SLOW IVP PRN (11:33)
[2020-09-17] MEDS ORDERED: Bisacodyl 10 MG SUPP PR PRN (11:33)
[2020-09-17] MEDS ORDERED: Calcium Carbonate 500 MG ChewTAB PO PRN (11:33)
[2020-09-17] MEDS ORDERED: Loperamide HCl 2 MG CAP PO PRN (11:33)
[2020-09-17] MEDS ORDERED: Ondansetron PF 4 MG/2 ML Vial IVP PRN (11:33)
[2020-09-17] MEDS ORDERED: Senokot S 8.6-50 MG TAB PO PRN (11:33)
[2020-09-17] MEDS ORDERED: Sodium Chloride 0.65% Nasal 44 ML BOT EA NARE PRN (11:33)
[2020-09-17] MEDS ORDERED: Guaifenesin DM 100-10/5 ML UDCUP PO PRN (11:33)
[2020-09-17] MEDS ORDERED: Ondansetron ODT 4 MG TAB PO PRN (11:33)
[2020-09-17] MEDS ORDERED: Acetaminophen 325 MG TAB PO PRN (11:33)
[2020-09-17] MEDS ORDERED: HYDROcodone/Acetaminophen 5/325 mg Tablet PO PRN (11:33)
[2020-09-17] MEDS ORDERED: Zolpidem Tartrate 5 MG TAB PO PRN (11:33)
[2020-09-17] MEDS ORDERED: Nitroglycerin 0.4 MG TAB (25 Tab Bottle) SL PRN (11:33)
[2020-09-17] MEDS ORDERED: Potassium Chloride 20 MEQ TAB PO SCH (11:45)
[2020-09-17 13:56] VITALS: BMI 48.5
[2020-09-17] MEDS: Nitroglycerin 2% Ointment 1 INCH/1 GM Packet TOP SCH (15:34)
[2020-09-17] MEDS: Famotidine 20 MG TAB PO SCH (20:51)
[2020-09-17] MEDS: Gabapentin 400 MG CAP PO SCH (20:52)
[2020-09-17] MEDS ORDERED: TICAGRELOR 90 MG TABLET PO SCH (21:00)
[2020-09-17] MEDS ORDERED: Atorvastatin Calcium 40 MG TAB PO SCH (21:00)
[2020-09-17 22:57] LABS: SARS-CoV-2 PCR by NAA Not Detected (NotDetected)
[2020-09-18] MEDS: Nitroglycerin 2% Ointment 1 INCH/1 GM Packet TOP SCH ×2 (02:52→07:06)
[2020-09-18 05:22] LABS: #Eosinphils 0.2 thou/uL (0.0-0.7); #Lymphocytes 1.4 thou/uL (1.20-3.40); #Monocytes 0.7 thou/uL (0.11-0.59); #Neutrophils 3.2 thou/uL (1.40-6.50); %Basophils 0.1 % (0.0-1.0); %Eosinophils 3.7 % (0.0-10.0); %Lymphocytes 25.5 % (21.0-51.0); %Monocytes 12.2 % (0.0-10.0); %Neutrophils 58.5 % (42.0-75.0); Hemoglobin 11.3 g/dL (12.0-16.0); Mean Corpuscular HGB CONC 32.5 g/dL (32.0-36.0); Mean Corpuscular Hemoglobin 29.8 pg (27.0-31.0); Mean Corpuscular Volume 91.8 fL (78.0-98.0); Mean Platelet Volume 8.9 fL (7.4-10.4); Platelet Count 189 thou/uL (130-400); RBC Distribution Width 12.8 % (11.5-14.5); Red Blood Cell (RBC) Count 3.78 mill/uL (4.20-5.40); White Blood Cell (WBC) Count 5.5 thou/uL (4.8-10.8)
[2020-09-18 05:28] LABS: Anion Gap 13 mmol/L (10-20); BUN (Urea Nitrogen) 11 mg/dL (9.8-20.1); Calc. Creatinine Clearance 101 mL/min (70-130); Calcium 7.9 mg/dL (7.8-10.44); Carbon Dioxide 21 mmol/L (23-31); Cardiac Risk 3.6 (Less than 4.5); Chloride 109 mmol/L (98-107); Cholesterol 91 mg/dl (< 200 Desired); Glucose 102 mg/dL (80-115); HDL Cholesterol 25 mg/dL (>60 Neg Risk); LDL Cholesterol, Calculated 44 mg/dL; Potassium 3.5 mmol/L (3.5-5.1); Sodium 139 mmol/L (136-145); Triglycerides 108 mg/dL (Less than 150)
[2020-09-18] MEDS ORDERED: Escitalopram Oxalate 20 mg Tablet PO SCH (09:00)
[2020-09-18] MEDS ORDERED: Lisinopril 2.5 MG TAB PO SCH (09:00)
[2020-09-18] MEDS ORDERED: Clopidogrel Bisulfate 75 MG TAB PO SCH (09:00)
[2020-09-18] MEDS ORDERED: Aspirin Chewable 81 MG TAB PO SCH (09:00)
[2020-09-18] MEDS ORDERED: Enoxaparin Sodium 40 MG/0.4 ML SYRINGE SC SCH (09:00)
[2020-09-18] MEDS: Gabapentin 400 MG CAP PO SCH (09:09)
[2020-09-18] MEDS: Famotidine 20 MG TAB PO SCH (09:10)
[2020-09-18 09:14] VITALS: BP 130/71; TEMP 97.9
== END 2020-09-18 11:15 | disposition home or self-care (01) ==
LOC: ERS 09:42 → SUATTDRO 09:42 → 2SW 11:20
PROVIDERS: ADMIT Internal Medicine; ATTEND Internal Medicine
DX: I25.118 Atherosclerotic heart disease of native coronary artery with other forms of angina pectoris (principal); R00.1 Bradycardia, unspecified; E87.6 Hypokalemia; I10 Essential (primary) hypertension; E78.2 Mixed hyperlipidemia; I25.2 Old myocardial infarction; G89.29 Other chronic pain; M54.9 Dorsalgia, unspecified; E66.9 Obesity, unspecified; Z68.42 Body mass index [BMI] 45.0-49.9, adult; Z79.02 Long term (current) use of antithrombotics/antiplatelets; Z79.82 Long term (current) use of aspirin; Z79.899 Other long term (current) drug therapy; Z95.5 Presence of coronary angioplasty implant and graft; Z20.822 Contact with and (suspected) exposure to COVID-19
CPT/HCPCS: 36415; 71045; 80048; 80053; 80061; 84484; 85025; 87635; 93005; 94760; 96372; G0378; J1650; U0003; U0005

== ENCOUNTER 2021-01-28 11:16 | Emergency (ER) | payer BC, OTHER ==
[2021-01-28 12:12] LABS: #Eosinphils 0.1 thou/uL (0.0-0.7); #Lymphocytes 1.7 thou/uL (1.20-3.40); #Monocytes 0.3 thou/uL (0.11-0.59); #Neutrophils 2.4 thou/uL (1.40-6.50); %Basophils 0.6 % (0.0-1.0); %Eosinophils 2.6 % (0.0-10.0); %Lymphocytes 38.2 % (21.0-51.0); %Monocytes 5.8 % (0.0-10.0); %Neutrophils 52.8 % (42.0-75.0); Hemoglobin 13.9 g/dL (12.0-16.0); Mean Corpuscular Hemoglobin 28.6 pg (27.0-31.0); Mean Corpuscular Volume 89.6 fL (78.0-98.0); Mean Platelet Volume 8.8 fL (7.4-10.4); Platelet Count 223 thou/uL (130-400); RBC Distribution Width 12.4 % (11.5-14.5); Red Blood Cell (RBC) Count 4.87 mill/uL (4.20-5.40); White Blood Cell (WBC) Count 4.5 thou/uL (4.8-10.8)
[2021-01-28 12:37] LABS: ALT (SGPT) 17 U/L (8-55); AST (SGOT) 32 U/L (5-34); Albumin 3.5 g/dL (3.4-4.8); Alkaline Phosphatase 106 U/L (40-110); Anion Gap 16 mmol/L (10-20); BUN (Urea Nitrogen) 8 mg/dL (9.8-20.1); Bilirubin, Total 0.9 mg/dL (0.2-1.2); Calc. Creatinine Clearance 0 mL/min (70-130); Calcium 9.3 mg/dL (7.8-10.44); Carbon Dioxide 21 mmol/L (23-31); Chloride 107 mmol/L (98-107); Glucose 101 mg/dL (80-115); Potassium 3.8 mmol/L (3.5-5.1); Protein, Total 7.5 g/dL (5.8-8.1); Sodium 140 mmol/L (136-145)
[2021-01-28] MEDS ORDERED: Ketorolac Tromethamine 30 MG/ML VIAL ONE (12:44)
[2021-01-28] MEDS ORDERED: Metoclopramide HCl 10 MG/2 ML VIAL ONE (12:44)
== END 2021-01-28 14:01 | disposition home or self-care (01) ==
LOC: ERS 11:16
DX: R51.9 Headache, unspecified (principal); I10 Essential (primary) hypertension; Z79.899 Other long term (current) drug therapy; Z79.82 Long term (current) use of aspirin
CPT/HCPCS: 36415; 80053; 84484; 85025; 93005; 96365; 96375; J1885; J2765

== ENCOUNTER 2021-03-22 10:21 | Outpatient (CLI) | payer BC | END 2021-03-22 10:22 | disposition home or self-care (01) | LOC: BICMAMMO 10:21 | PROVIDERS: ATTEND Family Medicine | DX: Z12.31 Encounter for screening mammogram for malignant neoplasm of breast (principal); Z13.820 Encounter for screening for osteoporosis; Z78.0 Asymptomatic menopausal state; Z91.89 Other specified personal risk factors, not elsewhere classified | CPT/HCPCS: 77063; 77067; 77080 ==

== ENCOUNTER 2022-03-24 09:38 | Outpatient (CLI) | payer BC | END 2022-03-24 09:39 | disposition home or self-care (01) | LOC: BICMAMMO 09:38 | PROVIDERS: ATTEND Family Medicine | DX: Z12.31 Encounter for screening mammogram for malignant neoplasm of breast (principal); Z91.89 Other specified personal risk factors, not elsewhere classified | CPT/HCPCS: 77063; 77067 ==

== ENCOUNTER 2022-05-21 06:43 | Day surgery (SDC) | payer BC ==
[2022-05-20 15:25] VITALS: BMI 48.8
[2022-05-21] MEDS ORDERED: PROPOFOL 200 MG/20 ML VIAL ONE (09:07)
== END 2022-05-21 10:05 | disposition home or self-care (01) ==
LOC: SDC 06:43
PROVIDERS: ATTEND Internal Medicine Gastroenterology
PROC: 0DJD8ZZ Inspection of Lower Intestinal Tract, Via Natural or Artificial Opening Endoscopic (ICD-10-PCS; principal; 2022-05-21)
DX: Z12.11 Encounter for screening for malignant neoplasm of colon (principal); K64.8 Other hemorrhoids; I25.10 Atherosclerotic heart disease of native coronary artery without angina pectoris; I25.2 Old myocardial infarction; Z86.010 Personal history of colon polyps; Z79.02 Long term (current) use of antithrombotics/antiplatelets; Z79.82 Long term (current) use of aspirin; Z79.899 Other long term (current) drug therapy; Z88.8 Allergy status to other drugs, medicaments and biological substances; Z95.5 Presence of coronary angioplasty implant and graft

== ENCOUNTER 2023-04-13 07:30 | Outpatient (CLI) | payer BC | END 2023-04-13 07:31 | disposition home or self-care (01) | LOC: SCSRAD 07:30 | PROVIDERS: ATTEND Family Medicine | DX: M25.511 Pain in right shoulder (principal); M54.2 Cervicalgia; M47.812 Spondylosis without myelopathy or radiculopathy, cervical region | CPT/HCPCS: 72040 ==

== ENCOUNTER 2023-04-17 09:52 | Outpatient (CLI) | payer BC | END 2023-04-17 09:53 | disposition home or self-care (01) | LOC: BICMAMMO 09:52 | PROVIDERS: ATTEND Family Medicine | DX: Z12.31 Encounter for screening mammogram for malignant neoplasm of breast (principal); Z91.89 Other specified personal risk factors, not elsewhere classified | CPT/HCPCS: 77063; 77067 ==

== ENCOUNTER 2023-07-09 08:47 | Emergency (ER) | payer BC ==
[2023-07-09 11:07] LABS: #Eosinphils 0.1 thou/uL (0.0-0.7); #Monocytes 0.5 thou/uL (0.11-0.59); #Neutrophils 4.8 thou/uL (1.40-6.50); %Basophils 0.3 % (0.0-1.0); %Eosinophils 2.1 % (0.0-10.0); %Lymphocytes 17.8 % (21.0-51.0); %Monocytes 7.6 % (0.0-10.0); %Neutrophils 71.8 % (42.0-75.0); Hematocrit 37.4 % (36.0-47.0); Hemoglobin 11.9 g/dL (12.0-16.0); Mean Corpuscular HGB CONC 31.8 g/dL (32.0-36.0); Mean Corpuscular Hemoglobin 29.6 pg (27.0-31.0); Mean Platelet Volume 10.1 fL (7.4-10.4); Platelet Count 245 10x3/uL (130-400); RBC Distribution Width 13.9 % (11.5-14.5); Red Blood Cell (RBC) Count 4.02 mill/uL (4.20-5.40); White Blood Cell (WBC) Count 6.7 10x3/uL (4.8-10.8)
[2023-07-09 11:33] LABS: ALT (SGPT) 20 U/L (8-55); AST (SGOT) 24 U/L (5-34); Albumin 3.3 g/dL (3.4-4.8); Alkaline Phosphatase 108 U/L (40-110); Anion Gap 16 mmol/L (10-20); BUN (Urea Nitrogen) 11 mg/dL (9.8-20.1); Bilirubin, Total 1.1 mg/dL (0.2-1.2); Calc. Creatinine Clearance 0 mL/min (70-130); Calcium 8.8 mg/dL (7.8-10.44); Carbon Dioxide 23 mmol/L (23-31); Chloride 106 mmol/L (98-107); Estimated GFR 44; Globulin 3.5 g/dL (2.4-3.5); Glucose 114 mg/dL (80-115); Potassium 4.1 mmol/L (3.5-5.1); Protein, Total 6.8 g/dL (5.8-8.1); Sodium 141 mmol/L (136-145)
[2023-07-09 14:31] LABS: Troponin I Less than 0.010 ng/mL (< 0.028)
== END 2023-07-09 15:40 | disposition home or self-care (01) ==
LOC: ERS 08:47
DX: R55 Syncope and collapse (principal); E86.0 Dehydration; R11.2 Nausea with vomiting, unspecified; I25.10 Atherosclerotic heart disease of native coronary artery without angina pectoris; Z79.82 Long term (current) use of aspirin; Z79.02 Long term (current) use of antithrombotics/antiplatelets
CPT/HCPCS: 36415; 71045; 71275; 80053; 84484; 85025; 85379

== ENCOUNTER 2024-03-10 09:31 | Emergency (ER) | payer BC ==
[2024-03-10] MEDS ORDERED: Ondansetron PF 4 MG/2 ML Vial ONE (10:32)
[2024-03-10 11:03] LABS: #Basophils Less than 0.03 10x3/uL (0.0-0.2); %Basophils 0.4 % (0.0-1.0); %Eosinophils 0.6 % (0.0-10.0); %Lymphocytes 31.1 % (21.0-51.0); %Monocytes 13.4 % (0.0-10.0); %Neutrophils 54.1 % (42.0-75.0); Hematocrit 41.8 % (36.0-47.0); Hemoglobin 13.3 g/dL (12.0-16.0); Mean Corpuscular HGB CONC 31.8 g/dL (32.0-36.0); Mean Corpuscular Hemoglobin 28.3 pg (27.0-31.0); Mean Corpuscular Volume 88.9 fL (78.0-98.0); Mean Platelet Volume 10.6 fL (7.4-10.4); Platelet Count 254 10x3/uL (130-400); RBC Distribution Width 13.8 % (11.5-14.5)
[2024-03-10 11:28] LABS: ALT (SGPT) 21 U/L (8-55); AST (SGOT) 34 U/L (5-34); Albumin 2.8 g/dL (3.4-4.8); Alkaline Phosphatase 109 U/L (40-110); Anion Gap 14 mmol/L (10-20); BUN (Urea Nitrogen) 16 mg/dL (9.8-20.1); Bilirubin, Total 0.9 mg/dL (0.2-1.2); Calc. Creatinine Clearance 0 mL/min (70-130); Calcium 9.4 mg/dL (7.8-10.44); Carbon Dioxide 24 mmol/L (23-31); Chloride 103 mmol/L (98-107); Estimated GFR 73; Globulin 4.3 g/dL (2.4-3.5); Glucose 96 mg/dL (80-115); Potassium 3.2 mmol/L (3.5-5.1); Protein, Total 7.1 g/dL (5.8-8.1); Sodium 138 mmol/L (136-145)
== END 2024-03-10 13:37 | disposition home or self-care (01) ==
LOC: ERS 09:31
DX: E86.9 Volume depletion, unspecified (principal); R19.7 Diarrhea, unspecified; R11.10 Vomiting, unspecified; I10 Essential (primary) hypertension; E78.5 Hyperlipidemia, unspecified; Z79.899 Other long term (current) drug therapy; Z79.82 Long term (current) use of aspirin
CPT/HCPCS: 36415; 80053; 85025; 96361; 96374; J2405

== ENCOUNTER → 2024-05-04 | Outpatient (CLI) | payer BC | LOC: BICMAMMO 13:09 | PROVIDERS: ATTEND Family Medicine | DX: R92.8 Other abnormal and inconclusive findings on diagnostic imaging of breast (principal) | CPT/HCPCS: 77066; G0279 ==

== ENCOUNTER 2024-12-30 11:31 | Outpatient (CLI) | payer BC | END 2024-12-30 11:32 | disposition home or self-care (01) | LOC: SCSRAD 11:31 | PROVIDERS: ATTEND Family Medicine | DX: R07.81 Pleurodynia (principal); J93.83 Other pneumothorax | CPT/HCPCS: 71111 ==